=== PATIENT | female | born 1960 | race Caucasian/White ===

== ENCOUNTER → 2018-11-12 | Outpatient (CLI) | payer BC | LOC: COL.RAD 07:00 | DX: C02.9 Malignant neoplasm of tongue, unspecified (principal); R91.1 Solitary pulmonary nodule | CPT/HCPCS: Q9967 ==

== ENCOUNTER → 2020-09-25 | Outpatient (CLI) | payer BC | LOC: MC.RAD 14:02 | DX: Z12.31 Encounter for screening mammogram for malignant neoplasm of breast (principal) ==